=== PATIENT | male | born 1965 | race Caucasian/White ===

== ENCOUNTER 2017-10-23 02:56 | Observation (INO) | payer BC ==
[~2017-10-23] VITALS: Ht 182.9 cm; Wt 98.1 kg
[2017-10-23 03:15] LABS: BASOPHIL (%) 0.3 % (0-1); EOSINOPHIL (%) 0 % (0-5); HEMATOCRIT 41.2 % (38.0-50.0); HEMOGLOBIN 14.6 G/DL (12.5-16.6); IMMATURE GRANULOCYTE (%) 0.5 % (0.0-0.7); LYMPHOCYTE (%) 6.1 % (15-42); LYMPHOCYTE COUNT 0.6 K/uL (1.0-2.8); MCH 29.8 PG (29.0-34.0); MCHC 35.4 G/DL (30.0-36.0); MCV 84.1 FL (86-99); MONOCYTE (%) 3.1 % (3-12); MONOCYTE COUNT 0.3 K/uL (0-0.8); NEUTROPHIL COUNT 8.8 K/uL (1.8-6.4); PLATELET COUNT 264 K/uL (156-360); RBC DIS.WIDTH-CV 11.6 % (11.8-14.6); RBC DIS.WIDTH-SD 35.5 % (39-53); WHITE BLOOD COUNT 9.8 K/uL (4.1-10.2)
[2017-10-23 03:23] LABS: PTT 28.3 SEC (25-37)
[2017-10-23 03:26] LABS: AMYLASE 34 IU/L (1-118); CHLORIDE 98 mEq/L (99-109); POTASSIUM 3.9 mEq/L (3.7-5.4); SODIUM 139 mEq/L (136-147)
[2017-10-23 03:27] LABS: GLUCOSE 136 mg/dL (70-99)
[2017-10-23 03:30] LABS: SERUM ETHYL ALCOHOL < 10 mg/dL
[2017-10-23 03:31] LABS: CREATININE 1.1 mg/dL (0.6-1.3); GFR ESTIMATE (CALCULATED) > 59 mL/min/ (58.99-99999)
[2017-10-23 03:32] LABS: UREA NITROGEN (BUN) 14 mg/dL (9-23)
[2017-10-23 03:34] LABS: LIPASE 10 U/L (1.0-51.0)
[2017-10-23 03:37] LABS: TROP-I INTERPRETATION NEGATIVE; TROPONIN-I < 0.01 ng/mL (0.0-0.30)
[2017-10-23 04:47] LABS: APPEARANCE CLEAR ((CLEAR)); BILIRUBIN NEGATIVE; BLOOD NEGATIVE; COLOR YELLOW ((YELLOW)); GLUCOSE (STRIP) NEGATIVE; KETONES 20; LEUKOCYTES NEGATIVE; NITRITE NEGATIVE; PROTEIN (STRIP) 30; SPECIFIC GRAVITY 1.045 (1.000-1.030); UCUL ADDED? NO; UROBILINOGEN 0.2 MG/DL (0.2-1.0)
[2017-10-23 04:55] LABS: AMPHETAMINE NEGATIVE (500 ng/mL); BARBITURATES NEGATIVE (200 ng/mL); BENZODIAZEPINES NEGATIVE (150 ng/mL); BUPRENORPHINE NEGATIVE (10 ng/mL); COCAINE NEGATIVE (150 ng/mL); METHADONE NEGATIVE (200 ng/mL); METHAMPHETAMINE NEGATIVE (500 ng/mL); OPIATES (MORPHINE) NEGATIVE (100 ng/mL); OXYCODONE NEGATIVE (100 ng/mL); PHENCYCLIDINE NEGATIVE (25 ng/mL); PROPOXYPHENE NEGATIVE (300 ng/mL); THC CANNABINOIDS NEGATIVE (50 ng/mL); TRICYCLIC ANTIDEPRESSANTS NEGATIVE (300 ng/mL)
[2017-10-23 07:38] LABS: HDL CHOLESTEROL 40 MG/DL (Desirable>=40); LDL CHOLESTEROL 150 mg/dL (Desirable<100); NON-HDL CHOLESTEROL 171 mg/dL (Desirable<160); TOTAL CHOLESTEROL 211 mg/dL (Desirable<200); TRIGLYCERIDES 104 MG/DL (Normal: <150)
[2017-10-23] MEDS ORDERED: BENICAR HCT 401 EAC1 PO (08:01)
[2017-10-23] MEDS ORDERED: TYLENOL REGULA325 MG PO (08:01)
[2017-10-23 08:16] VITALS: BP 135/76
[2017-10-23 10:35] LABS: HEMOGLOBIN A1c (GLYCOHEMOGLOB) 5.4 % (Below 5.7)
[2017-10-23 11:55] VITALS: BP 143/73
[2017-10-23 15:48] VITALS: BP 124/73
[2017-10-23 20:00] VITALS: BP 142/73
[2017-10-24 00:29] VITALS: BP 127/74
[2017-10-24 04:36] VITALS: BP 124/71
[2017-10-24 07:28] VITALS: BP 119/77
[2017-10-24] MEDS ORDERED: ATORVASTATIN CA40 MG PO (07:31)
[2017-10-24] MEDS ORDERED: TREXIMET 10-601 EACH PO (07:51)
== END 2017-10-24 09:50 | disposition home or self-care (01) ==
LOC: EME → EDBD 02:56 → EDOF 06:07 → ENRESERV 06:14 → 5WEST 07:56
PROVIDERS: Emergency Medicine; Hospitalist; Internal Medicine
DX: G45.9 Transient cerebral ischemic attack, unspecified (principal); I10 Essential (primary) hypertension; R50.9 Fever, unspecified; G43.909 Migraine, unspecified, not intractable, without status migrainosus; R11.2 Nausea with vomiting, unspecified
CPT/HCPCS: 70450; 70496; 70498; 70551; 71045; 80047; 80048; 80061; 81003; 82150; 83036; 83690; 84484; 85025; 85610; 85730; 86850; 86900; 86901; 87086; 87502; 93306; 99281; 99285; G0378; G0480; J1200; J1650; J2765; J7030